=== PATIENT | male | born 1950 | race African-American/Black ===

== ENCOUNTER 2016-10-30 08:28 | Inpatient (IN) | payer OTHER ==
[~2016-10-30] VITALS: Ht 182.9 cm; Wt 141.1 kg
[~2016-10-30 08:28] MED LIST: ATEN50TA PO; HYDR25TA PO; LISI-662 PO
[2016-10-30] MEDS ORDERED: SODIUM CHLORIDE 0.9% 1,000 ML IV ONE ×3 (08:45→22:30)
[2016-10-30] MEDS ORDERED: ACETAMINOPHEN 500 MG TABLET PO ONE (08:45)
[2016-10-30] MEDS ORDERED: AMLO-511 PO (08:46)
[2016-10-30] MEDS ORDERED: GUAI355S6 PO (08:48)
[2016-10-30] MEDS ORDERED: ALBU8.5H IH (08:48)
[2016-10-30 09:17] LABS: EOSINOPHILS % (AUTO) 0.2 % (1.0-6.0); HEMATOCRIT 45.1 % (41-53); HEMOGLOBIN 14.6 g/dL (13.5-17.5); LYMPHOCYTES # (AUTO) 0.2 K/uL (1.0-4.8); LYMPHOCYTES % (AUTO) 4.2 % (22.0-44.0); MEAN CORPUSCULAR HEMOGLOBIN 26.7 pg (26.0-34.0); MEAN CORPUSCULAR HGB CONC 32.3 G/dL (31.0-37.0); MEAN CORPUSCULAR VOLUME 83 fL (80-100); MONOCYTES % (AUTO) 0.4 % (2.0-9.0); NEUTROPHILS # (AUTO) 4.7 K/uL (1.8-7.7); PLATELET COUNT (AUTO) 120 K/uL (150-450); RED BLOOD CELL COUNT(AUTO) 5.45 MIL/uL (4.50-5.90); RED CELL DISTRIBUTION WIDTH 14.5 % (11.5-14.5); WHITE BLOOD COUNT (AUTO) 4.9 K/uL (4.5-11.0)
[2016-10-30 09:19] LABS: NEUTROPHILS % (AUTO) 95.2 % (40.0-70.0)
[2016-10-30 09:23] LABS: INR 1.1 (0.9-1.1); PROTHROMBIN TIME 11.8 SEC (9.4-11.6)
[2016-10-30 09:29] LABS: APPEARANCE,URINE CLOUDY (CLEAR); GLUCOSE, URINE (UA) NEGATIVE (NEGATIVE); KETONES,URINE NEGATIVE (NEGATIVE); LEUKOCYTE ESTERASE ,URINE NEGATIVE (NEGATIVE); OCCULT BLOOD,URINE MODERATE (NEGATIVE); PROTEIN,URINE SEE CONFIRM (NEGATIVE)
[2016-10-30 09:38] LABS: ANION GAP 15 mmol/L (8-16); CALCIUM, TOTAL 8.9 mg/dL (8.8-10.5); CARBON DIOXIDE 22 mmol/L (22-29); CHLORIDE 107 mmol/L (98-107); CREATININE 1.77 mg/dL (0.60-1.30); GLOMERULAR FILTR. RATE CALC 47 mL/min (>60); POTASSIUM 3.8 mmol/L (3.5-5.1); SODIUM SERUM 144 mmol/L (136-145); UREA NITROGEN, BLOOD 24 mg/dL (7-18)
[2016-10-30 09:44] LABS: ADD UA MICROSCOPIC YES
[2016-10-30 09:45] LABS: SULFOSALICYLIC ACID,URINE 4+ (Negative)
[2016-10-30 09:46] LABS: INFLUENZA TYPE B NEGATIVE FOR TYPE B (NEGATIVE)
[2016-10-30 09:48] LABS: COARSE GRANULAR CASTS,URINE 0-2 /LPF (None Seen); HYALINE CASTS, URINE 0-2 /LPF (None Seen)
[2016-10-30 09:50] LABS: RBC MORPHOLOGY COMMENT NORMAL RBC MORPH
[2016-10-30 09:54] LABS: LACTIC ACID 4.8 mmol/L (0.4-2.0)
[2016-10-30 09:55] LABS: B-TYPE NATRIURETIC PEPTIDE 51 pg/mL (0-100)
[2016-10-30 10:04] LABS: ALANINE AMINOTRANSFERASE 19 U/L (12-78); ALBUMIN 2.3 g/dL (3.4-5.0); ASPARTATE AMINOTRANSFERASE 40 U/L (15-37); BILIRUBIN,TOTAL 1.3 mg/dL (0.1-1.0); CREATINE KINASE MB 1.3 ng/mL (0-5); CREATINE KINASE, TOTAL 298 U/L (39-308); TOTAL PROTEIN, SERUM 6.8 g/dL (6.4-8.2)
[2016-10-30] MEDS ORDERED: AZITHROMYCIN 500 MG/NS 250 ML IV ONE (10:15)
[2016-10-30] MEDS ORDERED: CefTRIAXone 1 GM/DEXTROSE 50 ML IV ONE (10:15)
[2016-10-30] MEDS ORDERED: MORPHINE SULFATE 4 MG/ML SYRINGE IVP ONE (10:45)
[2016-10-30] MEDS ORDERED: ONDANSETRON HCL 4 MG/2 ML VIAL IVP ONE (10:45)
[2016-10-30] MEDS ORDERED: LISI-661 PO (11:06)
[2016-10-30 11:10] LABS: REFLEX LACTIC ACID? YES YES
[2016-10-30] MEDS ORDERED: ACETAMINOPHEN 325 MG TABLET PO PRN (11:15)
[2016-10-30] MEDS ORDERED: 0.9% SODIUM CHLORIDE 10 ML SYRINGE IVP PRN (11:15)
[2016-10-30] MEDS ORDERED: HYDROCORTISONE 25 MG RECTAL SUPPOSITORY PR ONE (11:30)
[2016-10-30 12:42] LABS: CALCIUM, TOTAL 7.8 mg/dL (8.8-10.5); CREATININE 2.21 mg/dL (0.60-1.30)
[2016-10-30 13:14] LABS: ABG A-A DIFF O2 98.8 mmHg (10-20.0); ABG HCO3 21.3 mmol/L (22.0-26.0); ABG OXYHEMOGLOBIN 91.5 % (94.0-100.0); ABG PCO2 30 mmHg (35-45); ABG PH 7.432 (7.35-7.450); TEMPERATURE, FAHRENHEIT, BG 98.5 FAHREN (96.0-98.6)
[2016-10-30 13:15] LABS: ALLEN TEST, BLOOD GAS Positive
[2016-10-30] MEDS ORDERED: PENTETATE DTPA TC99M/MCL ISOTOPE 1 EA INJ INJ ONE (14:55)
[2016-10-30] MEDS ORDERED: MAA ALBUMIN AGGREGATED TC99M/UD<10MCL ISOTOPE 1 EA INJ INJ ONE (15:10)
[2016-10-30] MEDS ORDERED: POTASSIUM CHLORIDE 20 MEQ ER TABLET PO ONE (18:00)
[2016-10-30] MEDS: PIPERACILLIN/TAZO 3.375 GM/D5W 50 ML IV SCH (19:33)
[2016-10-30 20:40] VITALS: BP 117/64
[2016-10-30] MEDS ORDERED: IPRATROPIUM BROMIDE 0.5 MG/2.5 ML NEB SOLUTION NEB PRN (22:30)
[2016-10-30] MEDS ORDERED: ZOLPIDEM TARTRATE 5 MG TABLET PO PRN (22:30)
[2016-10-30] MEDS ORDERED: BISACODYL 10 MG RECTAL RECTAL SUPPOSITORY PR PRN (22:30)
[2016-10-30] MEDS ORDERED: ONDANSETRON HCL 4 MG/2 ML VIAL IVP PRN (22:30)
[2016-10-30] MEDS ORDERED: ALBUTEROL SULFATE 2.5 MG/0.5 ML NEB SOLUTION NEB PRN (22:30)
[2016-10-30] MEDS ORDERED: MAGNESIUM HYDROXIDE SUSPENSION 30 ML UDCUP PO PRN (22:30)
[2016-10-30] MEDS ORDERED: HYDROCODONE/ACETAMINOPHEN 5-325 MG TABLET PO PRN (22:30)
[2016-10-30] MEDS: HEPARIN SODIUM,PORCINE 5,000 UNITS/ML VIAL SQ SCH (23:04)
[2016-10-30] MEDS: MethylPREDNISolone SOD SUCC 125 MG/2 ML VIAL IVP SCH (23:04)
[2016-10-31] VITALS (7 sets, daily range): BP systolic 98–144; BP diastolic 54–75
[2016-10-31] MEDS: PIPERACILLIN/TAZO 3.375 GM/D5W 50 ML IV SCH ×4 (01:54→20:30)
[2016-10-31] MEDS: ALBUTEROL SULFATE 2.5 MG/0.5 ML NEB SOLUTION NEB SCH ×4 (03:11→20:18)
[2016-10-31] MEDS: IPRATROPIUM BROMIDE 0.5 MG/2.5 ML NEB SOLUTION NEB SCH ×4 (03:11→20:18)
[2016-10-31] MEDS ORDERED: PNEUMOCOCCAL VACCINE POLYVALENT 0.5 ML VIAL [PPSV23] IM ONE (03:30)
[2016-10-31] MEDS: MethylPREDNISolone SOD SUCC 125 MG/2 ML VIAL IVP SCH ×3 (05:50→18:26)
[2016-10-31] MEDS ORDERED: HYDROCORTISONE 2.5% 30 GM CREAM TP PRN (06:45)
[2016-10-31 07:11] LABS: HEMATOCRIT 40.1 % (41-53); HEMOGLOBIN 12.6 g/dL (13.5-17.5); MEAN CORPUSCULAR HEMOGLOBIN 26.5 pg (26.0-34.0); MEAN CORPUSCULAR HGB CONC 31.5 G/dL (31.0-37.0); MEAN CORPUSCULAR VOLUME 84 fL (80-100); PLATELET COUNT (AUTO) 126 K/uL (150-450); RED BLOOD CELL COUNT(AUTO) 4.77 MIL/uL (4.50-5.90); RED CELL DISTRIBUTION WIDTH 15.1 % (11.5-14.5)
[2016-10-31 07:38] LABS: BILIRUBIN,TOTAL 0.9 mg/dL (0.1-1.0); CALCIUM, TOTAL 8.1 mg/dL (8.8-10.5); CREATININE 2.39 mg/dL (0.60-1.30); MAGNESIUM 1.3 mg/dL (1.80-2.40); PHOSPHORUS 3.7 mg/dL (2.5-4.9); POTASSIUM 4.7 mmol/L (3.5-5.1); THYROID STIMULATING HORMONE 0.43 uIU/mL (0.36-3.74); TOTAL PROTEIN, SERUM 6.2 g/dL (6.4-8.2)
[2016-10-31 07:46] LABS: WHITE BLOOD COUNT (AUTO) 33.2 K/uL (4.5-11.0)
[2016-10-31] MEDS: HEPARIN SODIUM,PORCINE 5,000 UNITS/ML VIAL SQ SCH ×2 (07:53→15:49)
[2016-10-31] MEDS: DOCUSATE SODIUM 100 MG CAPSULE PO SCH ×2 (07:53→20:42)
[2016-10-31] MEDS: BENZONATATE 100 MG CAPSULE PO SCH ×3 (07:53→20:42)
[2016-10-31] MEDS: GuaiFENesin SR 600 MG ER TABLET PO SCH ×2 (07:53→20:42)
[2016-10-31] MEDS: PANTOPRAZOLE SODIUM 40 MG DR TABLET PO SCH (07:53)
[2016-10-31 08:17] LABS: BAND NEUTROPHILS % (MANUAL) 20 % (1-5); LYMPHOCYTES % (MANUAL) 1 % (22-44); TOTAL CELLS COUNTED 100
[2016-10-31 08:18] LABS: WBC MORPHOLOGY TOXIC GRANULATION
[2016-10-31] MEDS ORDERED: MEBROFENIN TC99M/MCL ISOTOPE 1 EA INJ INJ ONE (10:10)
[2016-10-31] MEDS ORDERED: VANCOMYCIN HCL 1.5 GM in DEXTROSE 5%-WATER 250 ML IV ONE (14:00)
[2016-10-31 14:48] LABS: ABG A-A DIFF O2 92.1 mmHg (10-20.0); ABG BASE EXCESS -3.4 mmol/L (-2.0-3.0); ABG HCO3 22.3 mmol/L (22.0-26.0); ABG OXYHEMOGLOBIN 95.2 % (94.0-100.0); ABG PCO2 34 mmHg (35-45); ABG PH 7.417 (7.35-7.450); TEMPERATURE, FAHRENHEIT, BG 98.6 FAHREN (96.0-98.6)
[2016-10-31 14:49] LABS: ALLEN TEST, BLOOD GAS Positive
[2016-10-31] MEDS ORDERED: HYDROCORTISONE 25 MG RECTAL SUPPOSITORY PR PRN (20:15)
[2016-10-31] MEDS ORDERED: SODIUM CHLORIDE 0.9% 250 ML IV ONE (20:39)
[2016-10-31] MEDS: MORPHINE SULFATE 2 MG/ML SYRINGE IVP PRN (20:51)
[2016-10-31 21:35] LABS: HEMATOCRIT 41.2 % (41-53); HEMOGLOBIN 13.4 g/dL (13.5-17.5); MEAN CORPUSCULAR HEMOGLOBIN 26.7 pg (26.0-34.0); MEAN CORPUSCULAR HGB CONC 32.5 G/dL (31.0-37.0); MEAN CORPUSCULAR VOLUME 82 fL (80-100); RED BLOOD CELL COUNT(AUTO) 5.02 MIL/uL (4.50-5.90); RED CELL DISTRIBUTION WIDTH 14.8 % (11.5-14.5)
[2016-10-31 22:24] LABS: BAND NEUTROPHILS % (MANUAL) 12 % (1-5); BASOPHILS % (MANUAL) 1 % (0-2); LYMPHOCYTES % (MANUAL) 2 % (22-44); RBC MORPHOLOGY COMMENT ABNORMAL RBC MORPH; TOTAL CELLS COUNTED 100; WBC MORPHOLOGY TOXIC GRANULATION
[2016-11-01] MEDS: MethylPREDNISolone SOD SUCC 125 MG/2 ML VIAL IVP SCH ×4 (00:52→17:35)
[2016-11-01] MEDS: PIPERACILLIN/TAZO 3.375 GM/D5W 50 ML IV SCH ×3 (01:01→14:36)
[2016-11-01] MEDS: IPRATROPIUM BROMIDE 0.5 MG/2.5 ML NEB SOLUTION NEB SCH ×4 (02:00→20:05)
[2016-11-01] MEDS: ALBUTEROL SULFATE 2.5 MG/0.5 ML NEB SOLUTION NEB SCH ×4 (02:00→20:05)
[2016-11-01 05:07] VITALS: BP 117/69
[2016-11-01] MEDS ORDERED: 0.9% SODIUM CHLORIDE 10 ML SYRINGE IVP PRN (06:30)
[2016-11-01 06:43] LABS: HEMATOCRIT 43.3 % (41-53); HEMOGLOBIN 13.9 g/dL (13.5-17.5); MEAN CORPUSCULAR HEMOGLOBIN 26.8 pg (26.0-34.0); MEAN CORPUSCULAR HGB CONC 32.2 G/dL (31.0-37.0); MEAN CORPUSCULAR VOLUME 83 fL (80-100); PLATELET COUNT (AUTO) 141 K/uL (150-450); RED BLOOD CELL COUNT(AUTO) 5.19 MIL/uL (4.50-5.90); RED CELL DISTRIBUTION WIDTH 15.4 % (11.5-14.5)
[2016-11-01 06:52] LABS: CALCIUM, TOTAL 8.7 mg/dL (8.8-10.5); CREATININE 2.07 mg/dL (0.60-1.30); POTASSIUM 4.2 mmol/L (3.5-5.1)
[2016-11-01 06:55] LABS: WHITE BLOOD COUNT (AUTO) 32.7 K/uL (4.5-11.0)
[2016-11-01 07:08] VITALS: BP 102/58
[2016-11-01] MEDS ORDERED: SODIUM CHLORIDE 0.9% 1,000 ML IV ONE ×2 (07:45→10:45)
[2016-11-01] MEDS ORDERED: RINGERS SOLUTION,LACTATED 1,000 ML IV ONE (07:45)
[2016-11-01] MEDS ORDERED: SODIUM CHLORIDE 0.9% 0 ML IV ONE (07:47)
[2016-11-01 08:00] LABS: BAND NEUTROPHILS % (MANUAL) 11 % (1-5); LYMPHOCYTES % (MANUAL) 3 % (22-44); TOTAL CELLS COUNTED 100
[2016-11-01] MEDS ORDERED: VANCOMYCIN HCL 1.5 GM in DEXTROSE 5%-WATER 250 ML IV SCH (08:00)
[2016-11-01 08:01] LABS: RBC MORPHOLOGY COMMENT NORMAL RBC MORPH
[2016-11-01] MEDS ORDERED: SODIUM CL IRRIG SOLN BAG 3,000 ML IRRIG ONE (08:16)
[2016-11-01] MEDS ORDERED: BUPIVACAINE HCL/PF 0.25% 10 ML VIAL INJ ONE (08:38)
[2016-11-01] MEDS ORDERED: HYDROmorphone 2 MG/ML SYRINGE IVP PRN (09:30)
[2016-11-01] MEDS ORDERED: MEPERIDINE-PF 25 MG/ML SYRINGE IVP PRN (09:30)
[2016-11-01] MEDS ORDERED: FentaNYL CITRATE-PF 100 MCG/2 ML VIAL IVP PRN (09:30)
[2016-11-01 11:16] VITALS: BP 146/84
[2016-11-01] MEDS: DOCUSATE SODIUM 100 MG CAPSULE PO SCH ×2 (11:30→20:59)
[2016-11-01] MEDS: GuaiFENesin SR 600 MG ER TABLET PO SCH ×2 (11:30→21:00)
[2016-11-01] MEDS: PANTOPRAZOLE SODIUM 40 MG DR TABLET PO SCH (11:30)
[2016-11-01] MEDS: BENZONATATE 100 MG CAPSULE PO SCH ×3 (11:31→21:00)
[2016-11-01] MEDS: MORPHINE SULFATE 2 MG/ML SYRINGE IVP PRN (11:31)
[2016-11-01] MEDS: HEPARIN SODIUM,PORCINE 5,000 UNITS/ML VIAL SQ SCH ×3 (11:32→17:35)
[2016-11-01] MEDS ORDERED: MIDAZOLAM HCL 2 MG/2 ML VIAL IVP ONE (12:00)
[2016-11-01] MEDS ORDERED: FentaNYL CITRATE-PF 250 MCG/5 ML VIAL IVP ONE (12:00)
[2016-11-01 15:09] VITALS: BP 124/82
[2016-11-01] MEDS ORDERED: *CLINICAL-RX DOSING [ENTER DRUG IN COMMENTS] CLINICAL ONE (17:45)
[2016-11-01 20:21] VITALS: BP 151/87
[2016-11-01] MEDS: OXYGEN THERAPY IH SCH (20:59)
[2016-11-01] MEDS: MEROPENEM 1 GM in SODIUM CHLORIDE 0.9% 100 ML IV SCH (20:59)
[2016-11-02] MEDS: HEPARIN SODIUM,PORCINE 5,000 UNITS/ML VIAL SQ SCH ×3 (00:49→17:12)
[2016-11-02] MEDS: MethylPREDNISolone SOD SUCC 125 MG/2 ML VIAL IVP SCH ×4 (00:49→18:35)
[2016-11-02] MEDS: ALBUTEROL SULFATE 2.5 MG/0.5 ML NEB SOLUTION NEB SCH ×4 (02:00→19:49)
[2016-11-02] MEDS: IPRATROPIUM BROMIDE 0.5 MG/2.5 ML NEB SOLUTION NEB SCH ×4 (02:00→19:49)
[2016-11-02 05:14] VITALS: BP 140/97
[2016-11-02 06:46] LABS: EOSINOPHILS % (AUTO) 0.1 % (1.0-6.0); HEMATOCRIT 41.4 % (41-53); HEMOGLOBIN 13.1 g/dL (13.5-17.5); LYMPHOCYTES # (AUTO) 0.6 K/uL (1.0-4.8); LYMPHOCYTES % (AUTO) 2.1 % (22.0-44.0); MEAN CORPUSCULAR HEMOGLOBIN 26.5 pg (26.0-34.0); MEAN CORPUSCULAR HGB CONC 31.7 G/dL (31.0-37.0); MEAN CORPUSCULAR VOLUME 84 fL (80-100); MONOCYTES # (AUTO) 0.8 K/uL (0.1-1.0); MONOCYTES % (AUTO) 2.9 % (2.0-9.0); NEUTROPHILS # (AUTO) 27.1 K/uL (1.8-7.7); PLATELET COUNT (AUTO) 141 K/uL (150-450); RED BLOOD CELL COUNT(AUTO) 4.96 MIL/uL (4.50-5.90); RED CELL DISTRIBUTION WIDTH 15.6 % (11.5-14.5); WHITE BLOOD COUNT (AUTO) 28.6 K/uL (4.5-11.0)
[2016-11-02 06:55] LABS: NEUTROPHILS % (AUTO) 94.9 % (40.0-70.0)
[2016-11-02 07:10] VITALS: BP 142/87
[2016-11-02 07:26] LABS: CALCIUM, TOTAL 8.8 mg/dL (8.8-10.5); CREATININE 1.9 mg/dL (0.60-1.30); POTASSIUM 3.9 mmol/L (3.5-5.1)
[2016-11-02] MEDS: OXYGEN THERAPY IH SCH ×2 (08:00→19:50)
[2016-11-02] MEDS ORDERED: SODIUM CHLORIDE 0.9% 500 ML IV ONE (10:03)
[2016-11-02] MEDS: MEROPENEM 1 GM in SODIUM CHLORIDE 0.9% 100 ML IV SCH ×2 (10:05→22:52)
[2016-11-02] MEDS: PANTOPRAZOLE SODIUM 40 MG DR TABLET PO SCH (10:06)
[2016-11-02] MEDS: BENZONATATE 100 MG CAPSULE PO SCH ×3 (10:06→22:53)
[2016-11-02] MEDS: GuaiFENesin SR 600 MG ER TABLET PO SCH ×2 (10:07→22:53)
[2016-11-02] MEDS: DOCUSATE SODIUM 100 MG CAPSULE PO SCH ×2 (10:08→22:53)
[2016-11-02 11:15] VITALS: BP 148/88
[2016-11-02 15:42] VITALS: BP 159/100
[2016-11-02] MEDS ORDERED: TAMSULOSIN HCL 0.4 MG CAPSULE PO SCH (17:00)
[2016-11-02 19:34] VITALS: BP 149/97
[2016-11-02] MEDS: TAMSULOSIN HCL 0.4 MG CAPSULE PO SCH (22:53)
[2016-11-03] VITALS: BP 131/79
[2016-11-03] MEDS: HEPARIN SODIUM,PORCINE 5,000 UNITS/ML VIAL SQ SCH ×4 (00:44→23:57)
[2016-11-03] MEDS: MethylPREDNISolone SOD SUCC 125 MG/2 ML VIAL IVP SCH ×5 (00:45→23:57)
[2016-11-03] MEDS: IPRATROPIUM BROMIDE 0.5 MG/2.5 ML NEB SOLUTION NEB SCH ×4 (02:00→20:08)
[2016-11-03] MEDS: ALBUTEROL SULFATE 2.5 MG/0.5 ML NEB SOLUTION NEB SCH ×4 (02:00→20:08)
[2016-11-03 07:12] VITALS: BP 148/102
[2016-11-03 07:37] LABS: BASOPHILS # (AUTO) 0.01 K/uL (0.00-0.20); BASOPHILS % (AUTO) 0.1 % (0.0-2.0); EOSINOPHILS # (AUTO) 0.03 K/uL (0.00-0.70); EOSINOPHILS % (AUTO) 0.09 % (1.0-6.0); HEMATOCRIT 39.9 % (41-53); HEMOGLOBIN 13.1 g/dL (13.5-17.5); LYMPHOCYTES # (AUTO) 0.7 K/uL (1.0-4.8); LYMPHOCYTES % (AUTO) 2.3 % (22.0-44.0); MEAN CORPUSCULAR HEMOGLOBIN 26.8 pg (26.0-34.0); MEAN CORPUSCULAR HGB CONC 32.8 G/dL (31.0-37.0); MEAN CORPUSCULAR VOLUME 82 fL (80-100); MONOCYTES # (AUTO) 0.8 K/uL (0.1-1.0); MONOCYTES % (AUTO) 2.8 % (2.0-9.0); NEUTROPHILS # (AUTO) 27.2 K/uL (1.8-7.7); PLATELET COUNT (AUTO) 124 K/uL (150-450); RED BLOOD CELL COUNT(AUTO) 4.87 MIL/uL (4.50-5.90); RED CELL DISTRIBUTION WIDTH 16.1 % (11.5-14.5); WHITE BLOOD COUNT (AUTO) 28.7 K/uL (4.5-11.0)
[2016-11-03 07:38] LABS: NEUTROPHILS % (AUTO) 94.8 % (40.0-70.0); RBC MORPHOLOGY COMMENT NORMAL RBC MORPH
[2016-11-03 07:42] LABS: CALCIUM, TOTAL 9.2 mg/dL (8.8-10.5); CREATININE 1.81 mg/dL (0.60-1.30); POTASSIUM 4.4 mmol/L (3.5-5.1)
[2016-11-03] MEDS: OXYGEN THERAPY IH SCH ×2 (08:00→20:08)
[2016-11-03] MEDS ORDERED: 0.9% SODIUM CHLORIDE 5 ML NEB SOLUTION NEB ONE (08:24)
[2016-11-03] MEDS: MEROPENEM 1 GM in SODIUM CHLORIDE 0.9% 100 ML IV SCH ×3 (09:03→23:58)
[2016-11-03] MEDS: DOCUSATE SODIUM 100 MG CAPSULE PO SCH ×2 (09:04→21:02)
[2016-11-03] MEDS: GuaiFENesin SR 600 MG ER TABLET PO SCH ×2 (09:04→21:02)
[2016-11-03] MEDS: PANTOPRAZOLE SODIUM 40 MG DR TABLET PO SCH (09:04)
[2016-11-03] MEDS: BENZONATATE 100 MG CAPSULE PO SCH ×3 (09:05→21:02)
[2016-11-03] MEDS: TAMSULOSIN HCL 0.4 MG CAPSULE PO SCH ×3 (09:05→21:02)
[2016-11-03 10:59] VITALS: BP 155/93
[2016-11-03 15:16] VITALS: BP 145/80
[2016-11-03 19:45] VITALS: BP 162/99
[2016-11-03 23:10] VITALS: BP 186/94
[2016-11-03] MEDS ORDERED: SODIUM CHLORIDE 0.9% 500 ML IV ONE (23:39)
[2016-11-04] MEDS: IPRATROPIUM BROMIDE 0.5 MG/2.5 ML NEB SOLUTION NEB SCH ×4 (02:00→20:49)
[2016-11-04] MEDS: ALBUTEROL SULFATE 2.5 MG/0.5 ML NEB SOLUTION NEB SCH ×4 (02:00→20:49)
[2016-11-04 05:20] VITALS: BP 175/101
[2016-11-04] MEDS: MORPHINE SULFATE 2 MG/ML SYRINGE IVP PRN (05:30)
[2016-11-04] MEDS: MethylPREDNISolone SOD SUCC 125 MG/2 ML VIAL IVP SCH ×4 (05:30→23:54)
[2016-11-04 06:02] LABS: HEMATOCRIT 42.4 % (41-53); HEMOGLOBIN 13.4 g/dL (13.5-17.5); MEAN CORPUSCULAR HEMOGLOBIN 26.6 pg (26.0-34.0); MEAN CORPUSCULAR HGB CONC 31.7 G/dL (31.0-37.0); MEAN CORPUSCULAR VOLUME 84 fL (80-100); PLATELET COUNT (AUTO) 163 K/uL (150-450); RED BLOOD CELL COUNT(AUTO) 5.05 MIL/uL (4.50-5.90); RED CELL DISTRIBUTION WIDTH 15.4 % (11.5-14.5); WHITE BLOOD COUNT (AUTO) 25.7 K/uL (4.5-11.0)
[2016-11-04 07:18] VITALS: BP 173/103
[2016-11-04] MEDS: OXYGEN THERAPY IH SCH ×2 (08:00→20:49)
[2016-11-04 08:26] LABS: BAND NEUTROPHILS % (MANUAL) 22 % (1-5); LYMPHOCYTES % (MANUAL) 4 % (22-44); TOTAL CELLS COUNTED 100
[2016-11-04 08:27] LABS: RBC MORPHOLOGY COMMENT NORMAL RBC MORPH
[2016-11-04] MEDS ORDERED: AmLODIPine BESYLATE 5 MG TABLET PO SCH (09:00)
[2016-11-04] MEDS: TAMSULOSIN HCL 0.4 MG CAPSULE PO SCH ×3 (09:00→20:38)
[2016-11-04] MEDS: PANTOPRAZOLE SODIUM 40 MG DR TABLET PO SCH (09:30)
[2016-11-04] MEDS: LISINOPRIL 10 MG TABLET PO SCH (09:30)
[2016-11-04] MEDS: HYDROCHLOROTHIAZIDE 25 MG TABLET PO SCH (09:31)
[2016-11-04] MEDS: GuaiFENesin SR 600 MG ER TABLET PO SCH ×2 (09:31→20:38)
[2016-11-04] MEDS: BENZONATATE 100 MG CAPSULE PO SCH ×3 (09:31→20:38)
[2016-11-04] MEDS: HEPARIN SODIUM,PORCINE 5,000 UNITS/ML VIAL SQ SCH ×3 (09:31→23:54)
[2016-11-04] MEDS: DOCUSATE SODIUM 100 MG CAPSULE PO SCH ×2 (09:31→20:38)
[2016-11-04] MEDS: MEROPENEM 1 GM in SODIUM CHLORIDE 0.9% 100 ML IV SCH ×3 (09:33→23:55)
[2016-11-04 11:25] VITALS: BP 151/96
[2016-11-04] MEDS ORDERED: INDIUM IN-111 OXYQUINOLINE/.5MCL ISOTOPE 1 EA INJ INJ ONE (14:05)
[2016-11-04] MEDS ORDERED: MEROPENEM 1 GM in SODIUM CHLORIDE 0.9% 100 ML IV SCH (15:30)
[2016-11-04 15:54] VITALS: BP 150/75
[2016-11-04 19:46] VITALS: BP 157/111
[2016-11-04] MEDS ORDERED: AmLODIPine BESYLATE 5 MG TABLET PO ONE (21:15)
[2016-11-04 23:35] VITALS: BP 158/88
[2016-11-05] MEDS: IPRATROPIUM BROMIDE 0.5 MG/2.5 ML NEB SOLUTION NEB SCH ×4 (02:00→20:48)
[2016-11-05] MEDS: ALBUTEROL SULFATE 2.5 MG/0.5 ML NEB SOLUTION NEB SCH ×4 (02:00→20:48)
[2016-11-05 05:21] VITALS: BP 151/101
[2016-11-05] MEDS: MethylPREDNISolone SOD SUCC 125 MG/2 ML VIAL IVP SCH ×4 (06:06→23:59)
[2016-11-05 06:32] LABS: BASOPHILS # (AUTO) 0.03 K/uL (0.00-0.20); BASOPHILS % (AUTO) 0.1 % (0.0-2.0); EOSINOPHILS # (AUTO) 0.01 K/uL (0.00-0.70); EOSINOPHILS % (AUTO) 0.05 % (1.0-6.0); HEMATOCRIT 41.9 % (41-53); HEMOGLOBIN 13.5 g/dL (13.5-17.5); LYMPHOCYTES # (AUTO) 0.6 K/uL (1.0-4.8); LYMPHOCYTES % (AUTO) 2.5 % (22.0-44.0); MEAN CORPUSCULAR HEMOGLOBIN 26.6 pg (26.0-34.0); MEAN CORPUSCULAR HGB CONC 32.3 G/dL (31.0-37.0); MEAN CORPUSCULAR VOLUME 82 fL (80-100); MONOCYTES # (AUTO) 4.3 K/uL (0.1-1.0); NEUTROPHILS # (AUTO) 17.8 K/uL (1.8-7.7); NEUTROPHILS % (AUTO) 78.3 % (40.0-70.0); PLATELET COUNT (AUTO) 179 K/uL (150-450); RED BLOOD CELL COUNT(AUTO) 5.09 MIL/uL (4.50-5.90); RED CELL DISTRIBUTION WIDTH 16.1 % (11.5-14.5); WHITE BLOOD COUNT (AUTO) 22.8 K/uL (4.5-11.0)
[2016-11-05 07:00] LABS: ALBUMIN 1.6 g/dL (3.4-5.0); BILIRUBIN,TOTAL 0.3 mg/dL (0.1-1.0); CREATININE 1.88 mg/dL (0.60-1.30); TOTAL PROTEIN, SERUM 6.1 g/dL (6.4-8.2)
[2016-11-05 07:03] LABS: RBC MORPHOLOGY COMMENT NORMAL RBC MORPH
[2016-11-05 07:18] VITALS: BP 156/105
[2016-11-05] MEDS: HYDROCHLOROTHIAZIDE 25 MG TABLET PO SCH (08:13)
[2016-11-05] MEDS: LISINOPRIL 10 MG TABLET PO SCH (08:13)
[2016-11-05] MEDS: DOCUSATE SODIUM 100 MG CAPSULE PO SCH ×2 (08:13→20:32)
[2016-11-05] MEDS: GuaiFENesin SR 600 MG ER TABLET PO SCH ×2 (08:13→20:32)
[2016-11-05] MEDS: PANTOPRAZOLE SODIUM 40 MG DR TABLET PO SCH (08:13)
[2016-11-05] MEDS: AmLODIPine BESYLATE 10 MG TABLET PO SCH (08:13)
[2016-11-05] MEDS: OXYGEN THERAPY IH SCH (08:13)
[2016-11-05] MEDS: HEPARIN SODIUM,PORCINE 5,000 UNITS/ML VIAL SQ SCH ×2 (08:13→15:42)
[2016-11-05] MEDS: BENZONATATE 100 MG CAPSULE PO SCH ×3 (08:13→20:32)
[2016-11-05] MEDS: TAMSULOSIN HCL 0.4 MG CAPSULE PO SCH ×2 (08:13→20:32)
[2016-11-05] MEDS: MEROPENEM 1 GM in SODIUM CHLORIDE 0.9% 100 ML IV SCH ×3 (08:18→23:59)
[2016-11-05 11:20] VITALS: BP 153/92
[2016-11-05 15:15] VITALS: BP 153/97
[2016-11-05 20:39] VITALS: BP 135/98
[2016-11-05 23:42] VITALS: BP 149/94
[2016-11-06] MEDS: HEPARIN SODIUM,PORCINE 5,000 UNITS/ML VIAL SQ SCH ×3 (00:01→16:48)
[2016-11-06] MEDS: IPRATROPIUM BROMIDE 0.5 MG/2.5 ML NEB SOLUTION NEB SCH ×4 (01:59→19:58)
[2016-11-06] MEDS: ALBUTEROL SULFATE 2.5 MG/0.5 ML NEB SOLUTION NEB SCH ×4 (02:00→19:58)
[2016-11-06] MEDS: MethylPREDNISolone SOD SUCC 125 MG/2 ML VIAL IVP SCH ×3 (05:03→18:32)
[2016-11-06 06:11] VITALS: BP 151/63
[2016-11-06 06:40] LABS: EOSINOPHILS % (AUTO) 0.01 % (1.0-6.0); HEMATOCRIT 42.8 % (41-53); HEMOGLOBIN 13.9 g/dL (13.5-17.5); LYMPHOCYTES # (AUTO) 0.3 K/uL (1.0-4.8); LYMPHOCYTES % (AUTO) 1.4 % (22.0-44.0); MEAN CORPUSCULAR HEMOGLOBIN 26.4 pg (26.0-34.0); MEAN CORPUSCULAR HGB CONC 32.5 G/dL (31.0-37.0); MEAN CORPUSCULAR VOLUME 81 fL (80-100); MONOCYTES # (AUTO) 0.2 K/uL (0.1-1.0); MONOCYTES % (AUTO) 0.6 % (2.0-9.0); NEUTROPHILS # (AUTO) 24.3 K/uL (1.8-7.7); RED BLOOD CELL COUNT(AUTO) 5.25 MIL/uL (4.50-5.90); RED CELL DISTRIBUTION WIDTH 16.2 % (11.5-14.5); WHITE BLOOD COUNT (AUTO) 24.8 K/uL (4.5-11.0)
[2016-11-06 07:34] VITALS: BP 150/104
[2016-11-06] MEDS: OXYGEN THERAPY IH SCH ×2 (08:00→20:00)
[2016-11-06] MEDS: HYDROCORTISONE 2.5% 30 GM CREAM TP SCH ×2 (09:00→20:30)
[2016-11-06] MEDS: BENZONATATE 100 MG CAPSULE PO SCH ×3 (09:00→20:23)
[2016-11-06] MEDS: GuaiFENesin SR 600 MG ER TABLET PO SCH ×2 (09:00→20:23)
[2016-11-06] MEDS: TAMSULOSIN HCL 0.4 MG CAPSULE PO SCH ×2 (09:07→20:22)
[2016-11-06] MEDS: LISINOPRIL 10 MG TABLET PO SCH (09:07)
[2016-11-06] MEDS: DOCUSATE SODIUM 100 MG CAPSULE PO SCH ×2 (09:07→20:22)
[2016-11-06] MEDS: MEROPENEM 1 GM in SODIUM CHLORIDE 0.9% 100 ML IV SCH ×2 (09:07→16:48)
[2016-11-06] MEDS: HYDROCHLOROTHIAZIDE 25 MG TABLET PO SCH (09:07)
[2016-11-06] MEDS: PANTOPRAZOLE SODIUM 40 MG DR TABLET PO SCH (09:07)
[2016-11-06] MEDS: AmLODIPine BESYLATE 10 MG TABLET PO SCH (09:07)
[2016-11-06 09:40] LABS: PLATELET COUNT (AUTO) 209 K/uL (150-450)
[2016-11-06 11:31] VITALS: BP 158/97
[2016-11-06 16:00] VITALS: BP 160/96
[2016-11-06 19:13] VITALS: BP 153/93
[2016-11-07] MEDS: MethylPREDNISolone SOD SUCC 125 MG/2 ML VIAL IVP SCH ×3 (00:12→12:00)
[2016-11-07 00:13] VITALS: BP 152/90
[2016-11-07] MEDS: MEROPENEM 1 GM in SODIUM CHLORIDE 0.9% 100 ML IV SCH ×3 (00:13→17:06)
[2016-11-07] MEDS: HEPARIN SODIUM,PORCINE 5,000 UNITS/ML VIAL SQ SCH ×3 (00:13→17:14)
[2016-11-07] MEDS: ALBUTEROL SULFATE 2.5 MG/0.5 ML NEB SOLUTION NEB SCH ×4 (01:27→20:21)
[2016-11-07] MEDS: IPRATROPIUM BROMIDE 0.5 MG/2.5 ML NEB SOLUTION NEB SCH ×4 (01:27→20:21)
[2016-11-07 05:07] VITALS: BP 167/76
[2016-11-07 06:48] LABS: BASOPHILS % (AUTO) 0.5 % (0.0-2.0); EOSINOPHILS % (AUTO) 0 % (1.0-6.0); HEMATOCRIT 42.8 % (41-53); HEMOGLOBIN 13.5 g/dL (13.5-17.5); LYMPHOCYTES # (AUTO) 0.6 K/uL (1.0-4.8); MEAN CORPUSCULAR HEMOGLOBIN 26.2 pg (26.0-34.0); MEAN CORPUSCULAR HGB CONC 31.6 G/dL (31.0-37.0); MEAN CORPUSCULAR VOLUME 83 fL (80-100); MONOCYTES # (AUTO) 1.1 K/uL (0.1-1.0); NEUTROPHILS # (AUTO) 26.6 K/uL (1.8-7.7); PLATELET COUNT (AUTO) 235 K/uL (150-450); RED BLOOD CELL COUNT(AUTO) 5.15 MIL/uL (4.50-5.90); RED CELL DISTRIBUTION WIDTH 15.7 % (11.5-14.5); WHITE BLOOD COUNT (AUTO) 28.5 K/uL (4.5-11.0)
[2016-11-07 07:14] VITALS: BP 151/92
[2016-11-07 07:14] LABS: ALBUMIN 1.7 g/dL (3.4-5.0); BILIRUBIN,TOTAL 0.3 mg/dL (0.1-1.0); CALCIUM, TOTAL 9.1 mg/dL (8.8-10.5); CREATININE 1.81 mg/dL (0.60-1.30); POTASSIUM 5.2 mmol/L (3.5-5.1); TOTAL PROTEIN, SERUM 5.9 g/dL (6.4-8.2)
[2016-11-07 07:21] LABS: NEUTROPHILS % (AUTO) 93.5 % (40.0-70.0)
[2016-11-07] MEDS: BENZONATATE 100 MG CAPSULE PO SCH ×3 (08:33→21:28)
[2016-11-07] MEDS: LISINOPRIL 10 MG TABLET PO SCH (08:33)
[2016-11-07] MEDS: HYDROCHLOROTHIAZIDE 25 MG TABLET PO SCH (08:34)
[2016-11-07] MEDS: TAMSULOSIN HCL 0.4 MG CAPSULE PO SCH ×2 (08:34→21:28)
[2016-11-07] MEDS: AmLODIPine BESYLATE 10 MG TABLET PO SCH (08:34)
[2016-11-07] MEDS: GuaiFENesin SR 600 MG ER TABLET PO SCH ×2 (08:35→21:28)
[2016-11-07] MEDS: HYDROCORTISONE 2.5% 30 GM CREAM TP SCH ×2 (08:36→21:29)
[2016-11-07] MEDS: DOCUSATE SODIUM 100 MG CAPSULE PO SCH ×2 (08:40→21:27)
[2016-11-07] MEDS: OXYGEN THERAPY IH SCH ×2 (08:40→20:00)
[2016-11-07] MEDS: PANTOPRAZOLE SODIUM 40 MG DR TABLET PO SCH (08:40)
[2016-11-07 08:49] LABS: RBC MORPHOLOGY COMMENT NORMAL RBC MORPH
[2016-11-07 11:57] VITALS: BP 151/81
[2016-11-07 15:42] VITALS: BP 147/80
[2016-11-07 20:28] VITALS: BP 154/98
[2016-11-08] MEDS: MEROPENEM 1 GM in SODIUM CHLORIDE 0.9% 100 ML IV SCH ×4 (00:52→23:28)
[2016-11-08] MEDS: HEPARIN SODIUM,PORCINE 5,000 UNITS/ML VIAL SQ SCH ×4 (00:56→23:28)
[2016-11-08] MEDS: ALBUTEROL SULFATE 2.5 MG/0.5 ML NEB SOLUTION NEB SCH ×4 (02:00→21:28)
[2016-11-08] MEDS: IPRATROPIUM BROMIDE 0.5 MG/2.5 ML NEB SOLUTION NEB SCH ×4 (02:00→21:28)
[2016-11-08 06:22] LABS: EOSINOPHILS % (AUTO) 0.1 % (1.0-6.0); HEMATOCRIT 43.3 % (41-53); HEMOGLOBIN 13.5 g/dL (13.5-17.5); LYMPHOCYTES # (AUTO) 1.3 K/uL (1.0-4.8); LYMPHOCYTES % (AUTO) 5.4 % (22.0-44.0); MEAN CORPUSCULAR HEMOGLOBIN 26.1 pg (26.0-34.0); MEAN CORPUSCULAR HGB CONC 31.3 G/dL (31.0-37.0); MEAN CORPUSCULAR VOLUME 83 fL (80-100); MONOCYTES # (AUTO) 1.1 K/uL (0.1-1.0); MONOCYTES % (AUTO) 4.9 % (2.0-9.0); NEUTROPHILS # (AUTO) 20.6 K/uL (1.8-7.7); PLATELET COUNT (AUTO) 235 K/uL (150-450); RED BLOOD CELL COUNT(AUTO) 5.19 MIL/uL (4.50-5.90); RED CELL DISTRIBUTION WIDTH 15.6 % (11.5-14.5)
[2016-11-08 06:42] LABS: NEUTROPHILS % (AUTO) 89.6 % (40.0-70.0)
[2016-11-08 06:52] LABS: ALBUMIN 1.6 g/dL (3.4-5.0); BILIRUBIN,TOTAL 0.3 mg/dL (0.1-1.0); CALCIUM, TOTAL 9.1 mg/dL (8.8-10.5); CREATININE 1.75 mg/dL (0.60-1.30); POTASSIUM 4.2 mmol/L (3.5-5.1); TOTAL PROTEIN, SERUM 5.4 g/dL (6.4-8.2)
[2016-11-08 07:27] VITALS: BP 144/95
[2016-11-08 07:49] LABS: RBC MORPHOLOGY COMMENT NORMAL RBC MORPH
[2016-11-08] MEDS: OXYGEN THERAPY IH SCH ×2 (08:00→20:00)
[2016-11-08] MEDS: TAMSULOSIN HCL 0.4 MG CAPSULE PO SCH ×2 (08:35→20:18)
[2016-11-08] MEDS: HYDROCHLOROTHIAZIDE 25 MG TABLET PO SCH (08:35)
[2016-11-08] MEDS: GuaiFENesin SR 600 MG ER TABLET PO SCH ×2 (08:35→20:17)
[2016-11-08] MEDS: BENZONATATE 100 MG CAPSULE PO SCH ×3 (08:35→20:17)
[2016-11-08] MEDS: DOCUSATE SODIUM 100 MG CAPSULE PO SCH ×2 (08:35→20:18)
[2016-11-08] MEDS: LISINOPRIL 10 MG TABLET PO SCH (08:35)
[2016-11-08] MEDS: PANTOPRAZOLE SODIUM 40 MG DR TABLET PO SCH (08:35)
[2016-11-08] MEDS: AmLODIPine BESYLATE 10 MG TABLET PO SCH (08:36)
[2016-11-08] MEDS: HYDROCORTISONE 2.5% 30 GM CREAM TP SCH ×2 (08:36→20:24)
[2016-11-08 11:40] VITALS: BP 137/85
[2016-11-08 15:40] VITALS: BP 140/93
[2016-11-08 20:15] VITALS: BP 151/90
[2016-11-08] MEDS ORDERED: SODIUM CHLORIDE 0.9% 500 ML IV ONE (23:15)
[2016-11-09] VITALS (7 sets, daily range): BP systolic 110–147; BP diastolic 70–89
[2016-11-09] MEDS: IPRATROPIUM BROMIDE 0.5 MG/2.5 ML NEB SOLUTION NEB SCH ×4 (02:00→19:35)
[2016-11-09] MEDS: ALBUTEROL SULFATE 2.5 MG/0.5 ML NEB SOLUTION NEB SCH ×4 (02:00→19:35)
[2016-11-09 06:54] LABS: BASOPHILS % (AUTO) 0.7 % (0.0-2.0); EOSINOPHILS % (AUTO) 0.1 % (1.0-6.0); HEMATOCRIT 41.7 % (41-53); HEMOGLOBIN 13.4 g/dL (13.5-17.5); LYMPHOCYTES # (AUTO) 0.7 K/uL (1.0-4.8); LYMPHOCYTES % (AUTO) 2.7 % (22.0-44.0); MEAN CORPUSCULAR HEMOGLOBIN 26.4 pg (26.0-34.0); MEAN CORPUSCULAR VOLUME 82 fL (80-100); MONOCYTES # (AUTO) 0.8 K/uL (0.1-1.0); MONOCYTES % (AUTO) 2.9 % (2.0-9.0); PLATELET COUNT (AUTO) 234 K/uL (150-450); RED BLOOD CELL COUNT(AUTO) 5.07 MIL/uL (4.50-5.90); RED CELL DISTRIBUTION WIDTH 15.6 % (11.5-14.5); WHITE BLOOD COUNT (AUTO) 26.7 K/uL (4.5-11.0)
[2016-11-09 07:29] LABS: NEUTROPHILS % (AUTO) 93.6 % (40.0-70.0)
[2016-11-09] MEDS: OXYGEN THERAPY IH SCH ×2 (08:00→19:36)
[2016-11-09] MEDS: MEROPENEM 1 GM in SODIUM CHLORIDE 0.9% 100 ML IV SCH ×3 (08:27→23:45)
[2016-11-09] MEDS: HEPARIN SODIUM,PORCINE 5,000 UNITS/ML VIAL SQ SCH ×2 (08:28→16:15)
[2016-11-09] MEDS: LISINOPRIL 10 MG TABLET PO SCH (08:30)
[2016-11-09] MEDS: TAMSULOSIN HCL 0.4 MG CAPSULE PO SCH ×2 (08:30→20:20)
[2016-11-09] MEDS: BENZONATATE 100 MG CAPSULE PO SCH ×3 (08:30→20:20)
[2016-11-09] MEDS: GuaiFENesin SR 600 MG ER TABLET PO SCH ×2 (08:30→20:20)
[2016-11-09] MEDS: DOCUSATE SODIUM 100 MG CAPSULE PO SCH ×2 (08:30→21:00)
[2016-11-09] MEDS: AmLODIPine BESYLATE 10 MG TABLET PO SCH (08:30)
[2016-11-09] MEDS: PANTOPRAZOLE SODIUM 40 MG DR TABLET PO SCH (08:30)
[2016-11-09] MEDS: HYDROCORTISONE 2.5% 30 GM CREAM TP SCH ×2 (09:47→20:21)
[2016-11-09] MEDS: HYDROCHLOROTHIAZIDE 25 MG TABLET PO SCH (09:47)
[2016-11-10] MEDS: IPRATROPIUM BROMIDE 0.5 MG/2.5 ML NEB SOLUTION NEB SCH ×4 (02:00→19:02)
[2016-11-10] MEDS: ALBUTEROL SULFATE 2.5 MG/0.5 ML NEB SOLUTION NEB SCH ×4 (02:00→19:02)
[2016-11-10 04:36] VITALS: BP 135/86
[2016-11-10] MEDS: ACETAMINOPHEN 325 MG TABLET PO PRN ×2 (04:53→23:58)
[2016-11-10 06:16] LABS: BASOPHILS % (AUTO) 0.3 % (0.0-2.0); EOSINOPHILS % (AUTO) 0.1 % (1.0-6.0); HEMATOCRIT 39.7 % (41-53); HEMOGLOBIN 12.6 g/dL (13.5-17.5); LYMPHOCYTES # (AUTO) 0.9 K/uL (1.0-4.8); LYMPHOCYTES % (AUTO) 3.1 % (22.0-44.0); MEAN CORPUSCULAR HEMOGLOBIN 26.5 pg (26.0-34.0); MEAN CORPUSCULAR HGB CONC 31.8 G/dL (31.0-37.0); MEAN CORPUSCULAR VOLUME 83 fL (80-100); MONOCYTES # (AUTO) 0.7 K/uL (0.1-1.0); MONOCYTES % (AUTO) 2.3 % (2.0-9.0); NEUTROPHILS # (AUTO) 26.8 K/uL (1.8-7.7); PLATELET COUNT (AUTO) 234 K/uL (150-450); RED BLOOD CELL COUNT(AUTO) 4.77 MIL/uL (4.50-5.90); RED CELL DISTRIBUTION WIDTH 15.7 % (11.5-14.5); WHITE BLOOD COUNT (AUTO) 28.5 K/uL (4.5-11.0)
[2016-11-10 06:32] LABS: ALBUMIN 1.5 g/dL (3.4-5.0); BILIRUBIN,TOTAL 0.5 mg/dL (0.1-1.0); CALCIUM, TOTAL 8.5 mg/dL (8.8-10.5); CREATININE 1.5 mg/dL (0.60-1.30)
[2016-11-10 06:54] LABS: NEUTROPHILS % (AUTO) 94.2 % (40.0-70.0)
[2016-11-10 07:25] VITALS: BP 121/69
[2016-11-10] MEDS: OXYGEN THERAPY IH SCH (08:00)
[2016-11-10] MEDS: HEPARIN SODIUM,PORCINE 5,000 UNITS/ML VIAL SQ SCH ×5 (08:00→23:58)
[2016-11-10] MEDS: AmLODIPine BESYLATE 10 MG TABLET PO SCH ×2 (08:24→13:45)
[2016-11-10] MEDS: MEROPENEM 1 GM in SODIUM CHLORIDE 0.9% 100 ML IV SCH ×4 (08:24→23:58)
[2016-11-10] MEDS: HYDROCHLOROTHIAZIDE 25 MG TABLET PO SCH ×2 (08:24→13:45)
[2016-11-10] MEDS: LISINOPRIL 10 MG TABLET PO SCH ×2 (08:24→13:45)
[2016-11-10] MEDS: GuaiFENesin SR 600 MG ER TABLET PO SCH ×3 (08:24→21:06)
[2016-11-10] MEDS: HYDROCORTISONE 2.5% 30 GM CREAM TP SCH ×2 (08:25→21:00)
[2016-11-10] MEDS: BENZONATATE 100 MG CAPSULE PO SCH ×4 (08:25→21:06)
[2016-11-10] MEDS: TAMSULOSIN HCL 0.4 MG CAPSULE PO SCH ×3 (08:25→21:06)
[2016-11-10] MEDS: PANTOPRAZOLE SODIUM 40 MG DR TABLET PO SCH ×2 (08:25→13:45)
[2016-11-10] MEDS: DOCUSATE SODIUM 100 MG CAPSULE PO SCH ×3 (08:26→21:00)
[2016-11-10 10:33] LABS: INR 1.1 (0.9-1.1); PROTHROMBIN TIME 11.8 SEC (9.4-11.6)
[2016-11-10] MEDS ORDERED: FentaNYL CITRATE-PF 100 MCG/2 ML VIAL ONE (11:07)
[2016-11-10] MEDS ORDERED: LIDOCAINE HCL/PF 1% 30 ML VIAL ONE (11:07)
[2016-11-10] MEDS ORDERED: SODIUM BICARBONATE 50 MEQ/50 ML VIAL ONE (11:07)
[2016-11-10] MEDS ORDERED: MIDAZOLAM HCL 2 MG/2 ML VIAL ONE (11:07)
[2016-11-10] MEDS ORDERED: FentaNYL CITRATE-PF 100 MCG/2 ML VIAL IVP ONE (12:06)
[2016-11-10] MEDS ORDERED: MIDAZOLAM HCL 2 MG/2 ML VIAL IVP ONE (12:06)
[2016-11-10 13:23] VITALS: BP 129/70
[2016-11-10 15:26] VITALS: BP 142/79
[2016-11-10 20:41] VITALS: BP 149/59
[2016-11-10 23:42] VITALS: BP 118/69
[2016-11-11] MEDS: IPRATROPIUM BROMIDE 0.5 MG/2.5 ML NEB SOLUTION NEB SCH ×4 (02:47→21:20)
[2016-11-11] MEDS: ALBUTEROL SULFATE 2.5 MG/0.5 ML NEB SOLUTION NEB SCH ×4 (02:48→21:20)
[2016-11-11 04:51] VITALS: BP 129/62
[2016-11-11 06:40] LABS: BASOPHILS # (AUTO) 0.02 K/uL (0.00-0.20); BASOPHILS % (AUTO) 0.1 % (0.0-2.0); EOSINOPHILS # (AUTO) 0.06 K/uL (0.00-0.70); EOSINOPHILS % (AUTO) 0.27 % (1.0-6.0); HEMATOCRIT 39.1 % (41-53); HEMOGLOBIN 12.9 g/dL (13.5-17.5); LYMPHOCYTES # (AUTO) 1.1 K/uL (1.0-4.8); LYMPHOCYTES % (AUTO) 4.5 % (22.0-44.0); MEAN CORPUSCULAR HGB CONC 32.9 G/dL (31.0-37.0); MEAN CORPUSCULAR VOLUME 82 fL (80-100); MONOCYTES # (AUTO) 1.2 K/uL (0.1-1.0); MONOCYTES % (AUTO) 5.2 % (2.0-9.0); NEUTROPHILS # (AUTO) 21.4 K/uL (1.8-7.7); PLATELET COUNT (AUTO) 228 K/uL (150-450); RED BLOOD CELL COUNT(AUTO) 4.77 MIL/uL (4.50-5.90); WHITE BLOOD COUNT (AUTO) 23.8 K/uL (4.5-11.0)
[2016-11-11 07:29] VITALS: BP 123/78
[2016-11-11] MEDS: OXYGEN THERAPY IH SCH (08:00)
[2016-11-11] MEDS: LISINOPRIL 10 MG TABLET PO SCH (08:18)
[2016-11-11] MEDS: HEPARIN SODIUM,PORCINE 5,000 UNITS/ML VIAL SQ SCH ×2 (08:18→16:27)
[2016-11-11] MEDS: PANTOPRAZOLE SODIUM 40 MG DR TABLET PO SCH (08:18)
[2016-11-11] MEDS: AmLODIPine BESYLATE 10 MG TABLET PO SCH (08:18)
[2016-11-11] MEDS: HYDROCHLOROTHIAZIDE 25 MG TABLET PO SCH (08:18)
[2016-11-11] MEDS: TAMSULOSIN HCL 0.4 MG CAPSULE PO SCH ×2 (08:18→20:54)
[2016-11-11] MEDS: DOCUSATE SODIUM 100 MG CAPSULE PO SCH ×2 (08:25→20:54)
[2016-11-11] MEDS: GuaiFENesin SR 600 MG ER TABLET PO SCH ×2 (08:26→20:54)
[2016-11-11] MEDS: BENZONATATE 100 MG CAPSULE PO SCH ×3 (08:26→20:54)
[2016-11-11] MEDS: HYDROCORTISONE 2.5% 30 GM CREAM TP SCH ×2 (08:26→20:55)
[2016-11-11] MEDS: MEROPENEM 1 GM in SODIUM CHLORIDE 0.9% 100 ML IV SCH ×2 (09:36→16:27)
[2016-11-11 11:29] VITALS: BP 116/71
[2016-11-11 19:35] VITALS: BP 118/68
[2016-11-12] MEDS: MEROPENEM 1 GM in SODIUM CHLORIDE 0.9% 100 ML IV SCH ×4 (00:13→23:56)
[2016-11-12] MEDS: HEPARIN SODIUM,PORCINE 5,000 UNITS/ML VIAL SQ SCH ×3 (00:13→16:17)
[2016-11-12] MEDS: ALBUTEROL SULFATE 2.5 MG/0.5 ML NEB SOLUTION NEB SCH ×4 (02:00→20:30)
[2016-11-12] MEDS: IPRATROPIUM BROMIDE 0.5 MG/2.5 ML NEB SOLUTION NEB SCH ×4 (02:00→20:30)
[2016-11-12 04:18] VITALS: BP 118/71
[2016-11-12 06:56] LABS: BASOPHILS % (AUTO) 0.4 % (0.0-2.0); EOSINOPHILS % (AUTO) 0.4 % (1.0-6.0); HEMATOCRIT 38.9 % (41-53); HEMOGLOBIN 12.3 g/dL (13.5-17.5); LYMPHOCYTES % (AUTO) 5.2 % (22.0-44.0); MEAN CORPUSCULAR HEMOGLOBIN 26.6 pg (26.0-34.0); MEAN CORPUSCULAR HGB CONC 31.7 G/dL (31.0-37.0); MEAN CORPUSCULAR VOLUME 84 fL (80-100); MONOCYTES # (AUTO) 1.2 K/uL (0.1-1.0); MONOCYTES % (AUTO) 6.5 % (2.0-9.0); NEUTROPHILS # (AUTO) 16.2 K/uL (1.8-7.7); PLATELET COUNT (AUTO) 225 K/uL (150-450); RED BLOOD CELL COUNT(AUTO) 4.63 MIL/uL (4.50-5.90); RED CELL DISTRIBUTION WIDTH 15.8 % (11.5-14.5); WHITE BLOOD COUNT (AUTO) 18.5 K/uL (4.5-11.0)
[2016-11-12 07:00] LABS: CALCIUM, TOTAL 8.5 mg/dL (8.8-10.5); CREATININE 1.55 mg/dL (0.60-1.30); POTASSIUM 4.1 mmol/L (3.5-5.1)
[2016-11-12 07:06] LABS: NEUTROPHILS % (AUTO) 87.5 % (40.0-70.0)
[2016-11-12 07:18] VITALS: BP 124/79
[2016-11-12] MEDS: BENZONATATE 100 MG CAPSULE PO SCH ×3 (08:36→20:02)
[2016-11-12] MEDS: HYDROCHLOROTHIAZIDE 25 MG TABLET PO SCH (08:36)
[2016-11-12] MEDS: PANTOPRAZOLE SODIUM 40 MG DR TABLET PO SCH (08:36)
[2016-11-12] MEDS: DOCUSATE SODIUM 100 MG CAPSULE PO SCH ×2 (08:36→20:02)
[2016-11-12] MEDS: GuaiFENesin SR 600 MG ER TABLET PO SCH ×2 (08:36→20:02)
[2016-11-12] MEDS: AmLODIPine BESYLATE 10 MG TABLET PO SCH (08:36)
[2016-11-12] MEDS: LISINOPRIL 10 MG TABLET PO SCH (08:36)
[2016-11-12] MEDS: TAMSULOSIN HCL 0.4 MG CAPSULE PO SCH ×2 (08:36→20:02)
[2016-11-12] MEDS: HYDROCORTISONE 2.5% 30 GM CREAM TP SCH ×3 (09:00→21:00)
[2016-11-12 11:43] VITALS: BP 124/58
[2016-11-12 15:15] VITALS: BP 103/58
[2016-11-12 19:12] VITALS: BP 124/79
[2016-11-12 23:16] VITALS: BP 118/82
[2016-11-13] MEDS: HEPARIN SODIUM,PORCINE 5,000 UNITS/ML VIAL SQ SCH ×3 (00:02→17:06)
[2016-11-13] MEDS: IPRATROPIUM BROMIDE 0.5 MG/2.5 ML NEB SOLUTION NEB SCH ×4 (02:00→20:00)
[2016-11-13] MEDS: ALBUTEROL SULFATE 2.5 MG/0.5 ML NEB SOLUTION NEB SCH ×4 (02:00→20:00)
[2016-11-13 04:19] VITALS: BP 125/85
[2016-11-13 06:46] LABS: ANION GAP 7 mmol/L (8-16); CALCIUM, TOTAL 8.6 mg/dL (8.8-10.5); CARBON DIOXIDE 28 mmol/L (22-29); CHLORIDE 111 mmol/L (98-107); CREATININE 1.37 mg/dL (0.60-1.30); GLOMERULAR FILTR. RATE CALC > 60 mL/min (>60); SODIUM SERUM 146 mmol/L (136-145); UREA NITROGEN, BLOOD 27 mg/dL (7-18)
[2016-11-13] MEDS: AmLODIPine BESYLATE 10 MG TABLET PO SCH (08:36)
[2016-11-13] MEDS: BENZONATATE 100 MG CAPSULE PO SCH ×3 (08:36→20:13)
[2016-11-13] MEDS: LISINOPRIL 10 MG TABLET PO SCH (08:36)
[2016-11-13] MEDS: HYDROCHLOROTHIAZIDE 25 MG TABLET PO SCH (08:36)
[2016-11-13] MEDS: MEROPENEM 1 GM in SODIUM CHLORIDE 0.9% 100 ML IV SCH ×2 (08:36→17:06)
[2016-11-13] MEDS: TAMSULOSIN HCL 0.4 MG CAPSULE PO SCH ×2 (08:36→20:12)
[2016-11-13] MEDS: DOCUSATE SODIUM 100 MG CAPSULE PO SCH ×2 (08:36→20:12)
[2016-11-13] MEDS: PANTOPRAZOLE SODIUM 40 MG DR TABLET PO SCH (08:36)
[2016-11-13] MEDS: GuaiFENesin SR 600 MG ER TABLET PO SCH ×2 (08:36→20:12)
[2016-11-13] MEDS: HYDROCORTISONE 2.5% 30 GM CREAM TP SCH ×2 (09:00→21:00)
[2016-11-13 11:59] VITALS: BP 128/78
[2016-11-13 15:13] VITALS: BP 132/75
[2016-11-13 20:03] VITALS: BP 102/60
[2016-11-14 00:04] VITALS: BP 128/69
[2016-11-14] MEDS: MEROPENEM 1 GM in SODIUM CHLORIDE 0.9% 100 ML IV SCH ×2 (00:07→09:18)
[2016-11-14] MEDS: HEPARIN SODIUM,PORCINE 5,000 UNITS/ML VIAL SQ SCH ×2 (00:08→09:18)
[2016-11-14] MEDS: IPRATROPIUM BROMIDE 0.5 MG/2.5 ML NEB SOLUTION NEB SCH ×2 (02:00→08:00)
[2016-11-14] MEDS: ALBUTEROL SULFATE 2.5 MG/0.5 ML NEB SOLUTION NEB SCH ×2 (02:00→08:00)
[2016-11-14 04:44] VITALS: BP 132/81
[2016-11-14 07:30] LABS: BASOPHILS # (AUTO) 0.26 K/uL (0.00-0.20); BASOPHILS % (AUTO) 2.8 % (0.0-2.0); EOSINOPHILS # (AUTO) 0.11 K/uL (0.00-0.70); EOSINOPHILS % (AUTO) 1.12 % (1.0-6.0); HEMATOCRIT 36.3 % (41-53); HEMOGLOBIN 11.9 g/dL (13.5-17.5); LYMPHOCYTES % (AUTO) 10.6 % (22.0-44.0); MEAN CORPUSCULAR HEMOGLOBIN 27.1 pg (26.0-34.0); MEAN CORPUSCULAR HGB CONC 32.7 G/dL (31.0-37.0); MEAN CORPUSCULAR VOLUME 83 fL (80-100); MONOCYTES # (AUTO) 0.8 K/uL (0.1-1.0); MONOCYTES % (AUTO) 8.9 % (2.0-9.0); NEUTROPHILS # (AUTO) 7.2 K/uL (1.8-7.7); NEUTROPHILS % (AUTO) 76.6 % (40.0-70.0); PLATELET COUNT (AUTO) 199 K/uL (150-450); RED BLOOD CELL COUNT(AUTO) 4.39 MIL/uL (4.50-5.90); RED CELL DISTRIBUTION WIDTH 16.2 % (11.5-14.5); WHITE BLOOD COUNT (AUTO) 9.4 K/uL (4.5-11.0)
[2016-11-14 08:24] VITALS: BP 118/79
[2016-11-14] MEDS: DOCUSATE SODIUM 100 MG CAPSULE PO SCH (09:18)
[2016-11-14] MEDS: GuaiFENesin SR 600 MG ER TABLET PO SCH (09:18)
[2016-11-14] MEDS: BENZONATATE 100 MG CAPSULE PO SCH (09:18)
[2016-11-14] MEDS: AmLODIPine BESYLATE 10 MG TABLET PO SCH (09:19)
[2016-11-14] MEDS: PANTOPRAZOLE SODIUM 40 MG DR TABLET PO SCH (09:19)
[2016-11-14] MEDS: LISINOPRIL 10 MG TABLET PO SCH (09:19)
[2016-11-14] MEDS: TAMSULOSIN HCL 0.4 MG CAPSULE PO SCH (09:19)
[2016-11-14] MEDS: HYDROCORTISONE 2.5% 30 GM CREAM TP SCH (09:20)
[2016-11-14] MEDS: HYDROCHLOROTHIAZIDE 25 MG TABLET PO SCH (09:40)
[2016-11-14 11:40] VITALS: BP 133/79
[2016-11-14] MEDS ORDERED: OXYC-38 PO (14:16)
[2016-11-14] MEDS ORDERED: DSS100 PO (14:16)
[2016-11-14] MEDS ORDERED: TAMS0.4C32 PO (14:23)
[2016-11-14] MEDS ORDERED: AMOX-429 PO (14:24)
[2016-11-14] MEDS ORDERED: ANUSHCS PR (14:25)
== END 2016-11-14 15:35 | disposition home or self-care (01) | DRG 710 ==
LOC: EMS 08:32 → 5N 18:06 → UNDOADMIN 18:06 → 5N 18:07 → 6N 11-03 23:00
PROVIDERS: ADMIT Internal Medicine; ATTEND Internal Medicine
PROC: 0FT44ZZ Resection of Gallbladder, Percutaneous Endoscopic Approach (ICD-10-PCS; 2016-11-01)
PROC: 0D9P30Z Drainage of Rectum with Drainage Device, Percutaneous Approach (ICD-10-PCS; principal; 2016-11-10)
PROC: 0DPDX0Z Removal of Drainage Device from Lower Intestinal Tract, External Approach (ICD-10-PCS; 2016-11-14)
DX: A41.9 Sepsis, unspecified organism (principal); N17.0 Acute kidney failure with tubular necrosis; E87.2 Acidosis; K80.10 Calculus of gallbladder with chronic cholecystitis without obstruction; J44.1 Chronic obstructive pulmonary disease with (acute) exacerbation; F11.20 Opioid dependence, uncomplicated; E66.01 Morbid (severe) obesity due to excess calories; B96.20 Unspecified Escherichia coli [E. coli] as the cause of diseases classified elsewhere; G89.29 Other chronic pain; R35.1 Nocturia; B96.89 Other specified bacterial agents as the cause of diseases classified elsewhere; F17.210 Nicotine dependence, cigarettes, uncomplicated; G89.18 Other acute postprocedural pain; K59.00 Constipation, unspecified; I12.9 Hypertensive chronic kidney disease with stage 1 through stage 4 chronic kidney disease, or unspecified chronic kidney disease; K61.1 Rectal abscess; K64.9 Unspecified hemorrhoids; N18.9 Chronic kidney disease, unspecified; Z53.29 Procedure and treatment not carried out because of patient's decision for other reasons; J06.9 Acute upper respiratory infection, unspecified; R33.9 Retention of urine, unspecified; N28.1 Cyst of kidney, acquired; Z28.21 Immunization not carried out because of patient refusal; Z68.41 Body mass index [BMI] 40.0-44.9, adult
CPT/HCPCS: 51702; 71250; 72192; 74150; 74176; 74181; 75989; 76700; 78226; 78582; 78806; 82805; 83605; 83735; 84100; 84153; 84443; 86850; 86900; 86901; 87040; 87070; 87205; 87804; 88304; 93005; 93306; 94640; 96361; 96365; 96368; 96374; 96375; 99242; 99285; A9537; A9539; A9540; A9547; G0480; J0456; J0696; J1644; J2185; J2250; J2270; J2405; J2543; J2930; J3010; J3370; J3490; J7030; J7040; J7050; J7060

== ENCOUNTER 2016-11-17 08:31 | Emergency (ER) | payer OTHER ==
[~2016-11-17] VITALS: Ht 182.9 cm; Wt 132.3 kg
[~2016-11-17 08:31] MED LIST changes: +ALBU8.5H IH; +AMLO-511 PO; +AMOX-429 PO; +ANUSHCS PR; -ATEN50TA PO; +DSS100 PO; +GUAI355S6 PO; +LISI-661 PO; -LISI-662 PO; +OXYC-38 PO; +TAMS0.4C32 PO
[2016-11-17 08:45] VITALS: BP 130/83
[2016-11-17 10:04] LABS: APPEARANCE,URINE CLEAR (CLEAR); GLUCOSE, URINE (UA) NEGATIVE (NEGATIVE); KETONES,URINE NEGATIVE (NEGATIVE); LEUKOCYTE ESTERASE ,URINE NEGATIVE (NEGATIVE); OCCULT BLOOD,URINE NEGATIVE (NEGATIVE); PH,URINE 5.5 (5.0-8.0); PROTEIN,URINE SEE CONFIRM (NEGATIVE)
[2016-11-17 10:34] LABS: ADD UA MICROSCOPIC YES
[2016-11-17 10:44] LABS: SULFOSALICYLIC ACID,URINE 3+ (Negative)
[2016-11-17 10:45] LABS: RBC,URINE 0-2 /HPF (0-2); SQUAMOUS EPITHELIAL CELL,UR Rare /LPF (None Seen)
== END 2016-11-17 12:58 | disposition left against medical advice (07) ==
LOC: EMS 08:33
DX: N50.812 Left testicular pain (principal); I10 Essential (primary) hypertension; F17.210 Nicotine dependence, cigarettes, uncomplicated
CPT/HCPCS: 99284

== ENCOUNTER 2019-12-22 18:31 | Emergency (ER) | payer MEDICARE, OTHER ==
[~2019-12-22] VITALS: Ht 182.9 cm; Wt 150.0 kg
[~2019-12-22 18:31] MED LIST changes: -ALBU8.5H IH; +ALBU8.5H8 IH; -AMLO-511 PO; +AMLO5TAB9 PO; -AMOX-429 PO; -GUAI355S6 PO; +HYDR-1475 PO; -HYDR25TA PO; +TAMS-13 PO; -TAMS0.4C32 PO
[2019-12-22 19:35] LABS: BASOPHILS % (AUTO) 0.4 % (0.0-2.0); EOSINOPHILS % (AUTO) 0.8 % (1.0-6.0); HEMATOCRIT 41.6 % (41-53); HEMOGLOBIN 13.1 g/dL (13.5-17.5); LYMPHOCYTES # (AUTO) 1.2 K/uL (1.0-4.8); LYMPHOCYTES % (AUTO) 16.7 % (22.0-44.0); MEAN CORPUSCULAR HEMOGLOBIN 26.7 pg (26.0-34.0); MEAN CORPUSCULAR HGB CONC 31.5 G/dL (31.0-37.0); MEAN CORPUSCULAR VOLUME 85 fL (80-100); MONOCYTES # (AUTO) 0.7 K/uL (0.1-1.0); MONOCYTES % (AUTO) 9.5 % (2.0-9.0); NEUTROPHILS # (AUTO) 5.3 K/uL (1.8-7.7); NEUTROPHILS % (AUTO) 72.6 % (40.0-70.0); PLATELET COUNT (AUTO) 168 K/uL (150-450); RED BLOOD CELL COUNT(AUTO) 4.92 MIL/uL (4.50-5.90); RED CELL DISTRIBUTION WIDTH 16.5 % (11.5-14.5)
[2019-12-22 19:45] LABS: CALCIUM, TOTAL 10.3 mg/dL (8.8-10.5); CREATININE 2.14 mg/dL (0.60-1.30); POTASSIUM 4.2 mmol/L (3.5-5.1)
[2019-12-22 19:51] LABS: ALBUMIN 3.6 g/dL (3.4-5.0); BILIRUBIN,TOTAL 0.4 mg/dL (0.1-1.0); TOTAL PROTEIN, SERUM 7.2 g/dL (6.4-8.2)
[2019-12-22 20:38] VITALS: BP 137/89
== END 2019-12-22 20:43 | disposition left against medical advice (07) ==
LOC: EMS 18:32
DX: R22.0 Localized swelling, mass and lump, head (principal); F17.210 Nicotine dependence, cigarettes, uncomplicated; I10 Essential (primary) hypertension; Z79.899 Other long term (current) drug therapy

== ENCOUNTER 2021-03-10 14:34 | Emergency (ER) | payer MEDICARE, OTHER ==
[~2021-03-10] VITALS: Ht 185.4 cm; Wt 150.0 kg
[~2021-03-10 14:34] MED LIST changes: +AMLO-257 PO; -AMLO5TAB9 PO; -HYDR-1475 PO; +HYDR25TA2 PO; -LISI-661 PO; +LISI-893 PO
[2021-03-10 15:19] LABS: HEMATOCRIT 42.1 % (41-53); HEMOGLOBIN 13.3 g/dL (13.5-17.5); LYMPHOCYTES % (AUTO) 14.4 % (22.0-44.0); MEAN CORPUSCULAR HEMOGLOBIN 27.2 pg (26.0-34.0); MEAN CORPUSCULAR HGB CONC 31.6 G/dL (31.0-37.0); MEAN CORPUSCULAR VOLUME 86 fL (80-100); MONOCYTES # (AUTO) 1.2 K/uL (0.1-1.0); MONOCYTES % (AUTO) 17.2 % (2.0-9.0); NEUTROPHILS # (AUTO) 4.6 K/uL (1.8-7.7); NEUTROPHILS % (AUTO) 65.4 % (40.0-70.0); PLATELET COUNT (AUTO) 145 K/uL (150-450); RED BLOOD CELL COUNT(AUTO) 4.89 MIL/uL (4.50-5.90); RED CELL DISTRIBUTION WIDTH 15.4 % (11.5-14.5)
[2021-03-10 15:31] LABS: PROTHROMBIN TIME 10.9 SEC (9.4-11.6)
[2021-03-10 15:33] LABS: CALCIUM, TOTAL 10.2 mg/dL (8.8-10.5); CREATININE 1.92 mg/dL (0.60-1.30); POTASSIUM 3.6 mmol/L (3.5-5.1)
[2021-03-10 15:39] LABS: ALBUMIN 3.4 g/dL (3.4-5.0); BILIRUBIN,TOTAL 0.4 mg/dL (0.1-1.0); TOTAL PROTEIN, SERUM 7.2 g/dL (6.4-8.2)
[2021-03-10] MEDS ORDERED: ASPIRIN 81 MG CHEWABLE TABLET PO ONE (16:00)
[2021-03-10 16:45] LABS: COVID AG,FIA SOURCE NASOPHARYNGEAL
[2021-03-10 17:39] VITALS: BP 116/65
== END 2021-03-10 17:52 | disposition left against medical advice (07) ==
LOC: EMS 14:58
DX: R07.89 Other chest pain (principal); R05 Cough; I10 Essential (primary) hypertension; F17.210 Nicotine dependence, cigarettes, uncomplicated; Z20.822 Contact with and (suspected) exposure to COVID-19; Z79.899 Other long term (current) drug therapy
CPT/HCPCS: 71045; 80053; 83880; 84484; 85025; 85610; 93005; 99285; 36415-L1; 36415-TC

== ENCOUNTER 2022-04-15 08:50 | Inpatient (IN) | payer MEDICARE, OTHER ==
[~2022-04-15] VITALS: Ht 180.3 cm; Wt 122.7 kg
[2022-04-15 09:24] LABS: BASOPHILS % (AUTO) 0.3 % (0.0-2.0); EOSINOPHILS % (AUTO) 0.1 % (1.0-6.0); HEMATOCRIT 42.9 % (41-53); HEMOGLOBIN 13.8 g/dL (13.5-17.5); LYMPHOCYTES # (AUTO) 0.6 K/uL (1.0-4.8); LYMPHOCYTES % (AUTO) 4.2 % (22.0-44.0); MEAN CORPUSCULAR HEMOGLOBIN 27.7 pg (26.0-34.0); MEAN CORPUSCULAR HGB CONC 32.1 G/dL (31.0-37.0); MEAN CORPUSCULAR VOLUME 86 fL (80-100); MONOCYTES # (AUTO) 0.9 K/uL (0.1-1.0); MONOCYTES % (AUTO) 6.2 % (2.0-9.0); NEUTROPHILS # (AUTO) 12.9 K/uL (1.8-7.7); PLATELET COUNT (AUTO) 140 K/uL (150-450); RED BLOOD CELL COUNT(AUTO) 4.97 MIL/uL (4.50-5.90); RED CELL DISTRIBUTION WIDTH 15.2 % (11.5-14.5)
[2022-04-15 09:24] LABS: COVID AG,FIA SOURCE NASAL SWAB
[2022-04-15 09:25] LABS: NEUTROPHILS % (AUTO) 89.2 % (40.0-70.0)
[2022-04-15 09:40] LABS: ALBUMIN 2.9 g/dL (3.4-5.0); BILIRUBIN,TOTAL 0.4 mg/dL (0.1-1.0); CREATININE 3.27 mg/dL (0.60-1.30); POTASSIUM 3.6 mmol/L (3.5-5.1); TOTAL PROTEIN, SERUM 7.9 g/dL (6.4-8.2)
[2022-04-15 09:41] LABS: INR 1.2 (0.9-1.1); PROTHROMBIN TIME 12.5 SEC (9.4-11.6)
[2022-04-15 09:42] LABS: CALCIUM, TOTAL 14.2 mg/dL (8.8-10.5)
[2022-04-15] MEDS ORDERED: SODIUM CHLORIDE 0.9% 1,000 ML IV ONE ×3 (10:15→21:30)
[2022-04-15] MEDS ORDERED: OxyCODONE HCL/ACETAMINOPHEN 5-325 MG TABLET PO PRN (13:00)
[2022-04-15] MEDS ORDERED: ASPIRIN 81 MG CHEWABLE TABLET PO SCH (13:00)
[2022-04-15] MEDS ORDERED: ACETAMINOPHEN 325 MG TABLET PO PRN (13:00)
[2022-04-15] MEDS ORDERED: SODIUM CHLORIDE 0.45% 1,000 ML IV ONE (13:00)
[2022-04-15] MEDS ORDERED: ONDANSETRON HCL 4 MG/2 ML VIAL IVP PRN (13:00)
[2022-04-15] MEDS ORDERED: ALBUTEROL SULFATE 2.5 MG/0.5 ML NEB SOLUTION NEB PRN (13:00)
[2022-04-15] MEDS ORDERED: CALCITONIN,SALMON,SYNTHETIC 200 UNITS/ML 2 ML VIAL IM SCH ×2 (14:00→14:30)
[2022-04-15] MEDS ORDERED: HEPARIN SODIUM,PORCINE 5,000 UNITS/ML VIAL SQ SCH (16:00)
[2022-04-15] MEDS ORDERED: MethylPREDNISolone SOD SUCC 125 MG/2 ML VIAL IVP SCH (16:00)
[2022-04-15 16:31] LABS: APPEARANCE,URINE HAZY (CLEAR); BILIRUBIN,URINE NEGATIVE (NEGATIVE); GLUCOSE, URINE (UA) NEGATIVE (NEGATIVE); KETONES,URINE NEGATIVE (NEGATIVE); LEUKOCYTE ESTERASE ,URINE TRACE (NEGATIVE); NITRATE,URINE NEGATIVE (NEGATIVE); OCCULT BLOOD,URINE NEGATIVE (NEGATIVE); PH,URINE 5.5 (5.0-8.0); PROTEIN,URINE 300-600,SEE CONFIRM mg/dL (NEGATIVE); SPECIFIC GRAVITIY, URINE 1.021 (1.003-1.030); UROBILINOGEN,URINE <=1.0 mg/dL (<=1.0)
[2022-04-15 16:39] LABS: CREATININE,URINE RANDOM 372.5 mg/dL (30.0-125.0); PROTEIN,URINE RANDOM 328 mg/dL (0-11.9); SODIUM,URINE RANDOM 43 mmol/l (20-110); UREA NITROGEN,URINE RANDOM 501 mg/dL (350-1000)
[2022-04-15 16:41] VITALS: BP 139/93
[2022-04-15 16:43] LABS: SULFOSALICYLIC ACID,URINE 4+ (Negative)
[2022-04-15 16:49] LABS: RBC,URINE None Seen /HPF (0-2)
[2022-04-15 16:51] LABS: BACTERIA,URINE Moderate /HPF (None Seen)
[2022-04-15 19:41] LABS: CREATININE 3.09 mg/dL (0.60-1.30)
[2022-04-15 19:44] LABS: CALCIUM, TOTAL 13.3 mg/dL (8.8-10.5)
[2022-04-15 20:45] LABS: CREATININE 3.31 mg/dL (0.60-1.30); POTASSIUM 3.7 mmol/L (3.5-5.1)
[2022-04-15 20:53] LABS: CALCIUM, TOTAL 13.5 mg/dL (8.8-10.5)
[2022-04-15] MEDS ORDERED: DOCUSATE SODIUM 100 MG CAPSULE PO SCH (21:00)
[2022-04-15] MEDS ORDERED: TAMSULOSIN HCL 0.4 MG CAPSULE PO SCH (21:00)
[2022-04-15] MEDS ORDERED: MIDAZOLAM HCL 5 MG/ML VIAL ONE (22:58)
[2022-04-15] MEDS ORDERED: MIDAZOLAM HCL 2 MG/2 ML VIAL IVP ONE (23:00)
[2022-04-15] MEDS ORDERED: PROPOFOL 1000 MG/ISO-OSM 100 ML IV PRN (23:15)
[2022-04-15] MEDS ORDERED: AMIODARONE HCL 150 MG in DEXTROSE 5%-WATER 97 ML IV ONE (23:15)
[2022-04-15] MEDS ORDERED: AMIODARONE HCL 360 MG in DEXTROSE 5%-WATER 242.8 ML IV ONE (23:15)
[2022-04-15] MEDS ORDERED: NOREPINEPHRINE 8 MG/D5%-WATER 250 ML IV PRN (23:15)
[2022-04-15] MEDS ORDERED: EPINEPHrine 1:10,000 [1 MG/10 ML] SYRINGE ONE ×3 (23:21→23:54)
[2022-04-15] MEDS ORDERED: PHENYLEPHRINE 200 MG/D5%-WATER 250 ML IV PRN (23:30)
[2022-04-15] MEDS ORDERED: SODIUM CHLORIDE 0.9% 250 ML IV ONE (23:31)
[2022-04-15] MEDS ORDERED: SODIUM CHLORIDE 0.9% 500 ML IV ONE (23:43)
[2022-04-16] MEDS ORDERED: EPINEPHrine 1:10,000 [1 MG/10 ML] SYRINGE IVP ONE (02:24)
[2022-04-16] MEDS ORDERED: CALCIUM CHLORIDE 100 MG/ML 10 ML SYRINGE IVP ONE (02:24)
[2022-04-16] MEDS ORDERED: DOPamine HCL/D5W 400 MG/250 ML IV BAG IV ONE (02:24)
[2022-04-16] MEDS ORDERED: ATROPINE SULFATE 0.1 MG/ML 10 ML SYRINGE IVP ONE (02:24)
[2022-04-16] MEDS ORDERED: 0.9% SODIUM CHLORIDE 10 ML SYRINGE IVP ONE (02:24)
[2022-04-16] MEDS ORDERED: SODIUM BICARBONATE [ADULT] 8.4% 50 MEQ/50 ML SYRINGE IVP ONE (02:24)
[2022-04-16] MEDS ORDERED: AMIODARONE HCL 540 MG in DEXTROSE 5%-WATER 239.2 ML IV ONE (05:15)
[2022-04-16] MEDS ORDERED: FAMOTIDINE 20 MG TABLET PO SCH (09:00)
[2022-04-16 09:21] LABS: GLUCOMETER DEV NAME(LOC) 5N.3; GLUCOSE,POINT OF CARE 217 MG/DL (70-110)
[2022-04-16] MEDS ORDERED: AMIODARONE HCL 750 MG in DEXTROSE 5%-WATER 485 ML IV SCH (23:15)
[2022-04-21 15:06] LABS: ALPHA-1 (IFE & PEP) 0.2 g/dL (0.0-0.4); GAMMA GLOBULINS (IFE & ELP) 2.3 g/dL (0.4-1.8); IGM (IMMUNOFIXATION) 46 mg/dL (20-172)
== END 2022-04-16 02:25 | DRG 180 ==
LOC: EMS 08:55 → 5S 14:29 → ICU 21:00
PROVIDERS: ADMIT Internal Medicine; ATTEND Internal Medicine
PROC: 5A09357 Assistance with Respiratory Ventilation, Less than 24 Consecutive Hours, Continuous Positive Airway Pressure (ICD-10-PCS; principal; 2022-04-15)
DX: C34.92 Malignant neoplasm of unspecified part of left bronchus or lung (principal); I46.9 Cardiac arrest, cause unspecified; J96.01 Acute respiratory failure with hypoxia; N17.0 Acute kidney failure with tubular necrosis; J44.0 Chronic obstructive pulmonary disease with (acute) lower respiratory infection; I13.0 Hypertensive heart and chronic kidney disease with heart failure and stage 1 through stage 4 chronic kidney disease, or unspecified chronic kidney disease; F11.20 Opioid dependence, uncomplicated; Z20.822 Contact with and (suspected) exposure to COVID-19; E78.5 Hyperlipidemia, unspecified; E83.52 Hypercalcemia; F17.210 Nicotine dependence, cigarettes, uncomplicated; I48.0 Paroxysmal atrial fibrillation; I50.9 Heart failure, unspecified; I16.0 Hypertensive urgency; M10.9 Gout, unspecified; N18.9 Chronic kidney disease, unspecified; N40.0 Benign prostatic hyperplasia without lower urinary tract symptoms; E66.01 Morbid (severe) obesity due to excess calories; G89.29 Other chronic pain; Z79.899 Other long term (current) drug therapy; Z68.37 Body mass index [BMI] 37.0-37.9, adult; Z71.6 Tobacco abuse counseling
CPT/HCPCS: 71045; 71250; 76770; 80048; 80053; 81001; 81002; 82397; 82570; 82784; 82962; 83880; 83970; 84155; 84156; 84165; 84300; 84484; 84540; 85025; 85610; 85730; 86334; 87040; 87086; 92950; 93005; 94002; 94660; 99285; G0378; J0171; J0282; J0461; J0630; J1265; J1644; J2250; J2370; J2930; J3490; J7040; J7050; J7060; 36415-L1; 36415-TC